=== PATIENT | male | born 1970 | race Caucasian/White ===

== ENCOUNTER 2017-04-26 18:33 | Inpatient (IN) | payer MEDICARE, MEDICAID ==
[~2017-04-26] VITALS: Ht 182.9 cm; Wt 81.2 kg
[~2017-04-26 18:33] MED LIST: ARIP5SOL2 PO; LISI10TA7 PO; LORA-192 PO; METO-325 PO; MULT-1203 PO; RISP3 PO; TRAZ-144 PO; TRIH2TAB3 PO
[2017-04-26 20:26] VITALS: BP 103/66
[2017-04-26 21:28] VITALS: BP 109/67
[2017-04-26] MEDS: ZOLPIDEM TARTRATE 10 MG TABLET PO PRN (21:35)
[2017-04-26] MEDS ORDERED: PNEUMOCOCCAL VACCINE POLYVALENT 0.5 ML VIAL [PPSV23] IM ONE (22:30)
[2017-04-27 06:27] VITALS: BP 102/60
[2017-04-27 08:16] VITALS: BP 104/66
[2017-04-27] MEDS ORDERED: CloNIDine HCL 0.1 MG TABLET PO PRN (08:30)
[2017-04-27] MEDS ORDERED: PETROLATUM,WHITE 71 GM JELLY TP PRN (08:30)
[2017-04-27] MEDS ORDERED: BENZOCAINE/MENTHOL LOZENGE MM PRN (08:30)
[2017-04-27] MEDS ORDERED: IBUPROFEN 600 MG TABLET PO PRN (08:30)
[2017-04-27] MEDS ORDERED: MAGNESIUM HYDROXIDE SUSPENSION 30 ML UDCUP PO PRN (08:30)
[2017-04-27] MEDS ORDERED: LOPERAMIDE HCL 2 MG CAPSULE PO PRN (08:30)
[2017-04-27] MEDS ORDERED: ACETAMINOPHEN 325 MG TABLET PO PRN (08:30)
[2017-04-27] MEDS ORDERED: MAG HYDROX/AL HYDROX/SIMETH ES 30 ML SUSPENSION UDCUP PO PRN (08:30)
[2017-04-27] MEDS ORDERED: BACITRACIN 28.4 GM OINTMENT TP PRN (08:30)
[2017-04-27] MEDS ORDERED: ALBUTEROL SULFATE HFA 90 MCG/PUFF 8 GM INHALER IH PRN (08:30)
[2017-04-27] MEDS ORDERED: ONDANSETRON HCL 4 MG TABLET PO PRN (08:30)
[2017-04-27 08:34] LABS: BASOPHILS % (AUTO) 0.7 % (0.0-2.0); EOSINOPHILS % (AUTO) 2.1 % (1.0-6.0); HEMATOCRIT 40.5 % (41-53); HEMOGLOBIN 13.7 g/dL (13.5-17.5); LYMPHOCYTES # (AUTO) 2.4 K/uL (1.0-4.8); LYMPHOCYTES % (AUTO) 40.1 % (22.0-44.0); MEAN CORPUSCULAR HEMOGLOBIN 31.3 pg (26.0-34.0); MEAN CORPUSCULAR HGB CONC 33.9 G/dL (31.0-37.0); MEAN CORPUSCULAR VOLUME 92 fL (80-100); MONOCYTES # (AUTO) 0.7 K/uL (0.1-1.0); MONOCYTES % (AUTO) 12.3 % (2.0-9.0); NEUTROPHILS # (AUTO) 2.7 K/uL (1.8-7.7); NEUTROPHILS % (AUTO) 44.8 % (40.0-70.0); PLATELET COUNT (AUTO) 229 K/uL (150-450); RED BLOOD CELL COUNT(AUTO) 4.39 MIL/uL (4.50-5.90); RED CELL DISTRIBUTION WIDTH 14.2 % (11.5-14.5)
[2017-04-27] MEDS: MULTIVITAMINS WITH MINERALS, THERAPEUTIC TABLET PO SCH (08:52)
[2017-04-27] MEDS ORDERED: METOPROLOL SUCCINATE 50 MG ER TABLET PO SCH (09:00)
[2017-04-27] MEDS ORDERED: LISINOPRIL 20 MG TABLET PO SCH (09:00)
[2017-04-27] MEDS: LISINOPRIL 5 MG TABLET PO SCH (09:00)
[2017-04-27 09:40] LABS: ALANINE AMINOTRANSFERASE 28 U/L (12-78); ALBUMIN 3.4 g/dL (3.4-5.0); ANION GAP 8 mmol/L (8-16); ASPARTATE AMINOTRANSFERASE 14 U/L (15-37); BILIRUBIN,TOTAL 0.4 mg/dL (0.1-1.0); CALCIUM, TOTAL 8.5 mg/dL (8.8-10.5); CARBON DIOXIDE 28 mmol/L (22-29); CHLORIDE 105 mmol/L (98-107); CREATININE 0.86 mg/dL (0.60-1.30); GLOMERULAR FILTR. RATE CALC > 60 mL/min (>60); POTASSIUM 3.9 mmol/L (3.5-5.1); SODIUM SERUM 141 mmol/L (136-145); THYROID STIMULATING HORMONE 2.28 uIU/mL (0.36-3.74); TOTAL PROTEIN, SERUM 6.5 g/dL (6.4-8.2); UREA NITROGEN, BLOOD 22 mg/dL (7-18)
[2017-04-27] MEDS: LORazepam 2 MG TABLET PO PRN (12:52)
[2017-04-27 16:15] VITALS: BP 100/61
[2017-04-27] MEDS: RisperiDONE 2 MG TABLET PO SCH (20:23)
[2017-04-27] MEDS: ZOLPIDEM TARTRATE 10 MG TABLET PO PRN (21:30)
[2017-04-28 06:05] VITALS: BP 110/64
[2017-04-28] MEDS: LORazepam 2 MG TABLET PO PRN ×3 (06:10→16:21)
[2017-04-28 08:02] VITALS: BP 104/55
[2017-04-28] MEDS: LISINOPRIL 5 MG TABLET PO SCH (09:00)
[2017-04-28] MEDS: MULTIVITAMINS WITH MINERALS, THERAPEUTIC TABLET PO SCH (09:56)
[2017-04-28] MEDS: RisperiDONE 2 MG TABLET PO SCH ×2 (09:57→20:34)
[2017-04-28 16:02] VITALS: BP 107/61
[2017-04-28] MEDS: ZOLPIDEM TARTRATE 10 MG TABLET PO PRN (21:27)
[2017-04-29 08:01] VITALS: BP 104/62
[2017-04-29] MEDS ORDERED: PALIPERIDONE PALMITATE 234 MG/1.5 ML SYRINGE IM ONE (09:00)
[2017-04-29] MEDS: LORazepam 2 MG TABLET PO PRN ×2 (09:26→14:47)
[2017-04-29] MEDS: MULTIVITAMINS WITH MINERALS, THERAPEUTIC TABLET PO SCH (09:26)
[2017-04-29] MEDS: RisperiDONE 2 MG TABLET PO SCH ×2 (09:26→20:33)
[2017-04-29] MEDS: LISINOPRIL 5 MG TABLET PO SCH (09:26)
[2017-04-29 18:00] VITALS: BP 107/63
[2017-04-29] MEDS: ZOLPIDEM TARTRATE 10 MG TABLET PO PRN (20:56)
[2017-04-30 00:02] VITALS: BP 110/62
[2017-04-30 08:04] LABS: BASOPHILS # (AUTO) 0.04 K/uL (0.00-0.20); BASOPHILS % (AUTO) 0.7 % (0.0-2.0); EOSINOPHILS # (AUTO) 0.15 K/uL (0.00-0.70); EOSINOPHILS % (AUTO) 2.58 % (1.0-6.0); HEMATOCRIT 40.8 % (41-53); HEMOGLOBIN 13.6 g/dL (13.5-17.5); LYMPHOCYTES # (AUTO) 2.3 K/uL (1.0-4.8); LYMPHOCYTES % (AUTO) 39.9 % (22.0-44.0); MEAN CORPUSCULAR HEMOGLOBIN 31.2 pg (26.0-34.0); MEAN CORPUSCULAR HGB CONC 33.4 G/dL (31.0-37.0); MEAN CORPUSCULAR VOLUME 93 fL (80-100); MONOCYTES # (AUTO) 0.8 K/uL (0.1-1.0); MONOCYTES % (AUTO) 13.4 % (2.0-9.0); NEUTROPHILS # (AUTO) 2.5 K/uL (1.8-7.7); NEUTROPHILS % (AUTO) 43.4 % (40.0-70.0); PLATELET COUNT (AUTO) 210 K/uL (150-450); RED BLOOD CELL COUNT(AUTO) 4.37 MIL/uL (4.50-5.90); RED CELL DISTRIBUTION WIDTH 13.8 % (11.5-14.5); WHITE BLOOD COUNT (AUTO) 5.8 K/uL (4.5-11.0)
[2017-04-30 08:10] VITALS: BP 100/58
[2017-04-30 08:15] LABS: ALANINE AMINOTRANSFERASE 24 U/L (12-78); ALBUMIN 3.4 g/dL (3.4-5.0); ANION GAP 7 mmol/L (8-16); ASPARTATE AMINOTRANSFERASE 11 U/L (15-37); BILIRUBIN,TOTAL 0.4 mg/dL (0.1-1.0); CALCIUM, TOTAL 8.4 mg/dL (8.8-10.5); CARBON DIOXIDE 27 mmol/L (22-29); CHLORIDE 106 mmol/L (98-107); CREATININE 0.84 mg/dL (0.60-1.30); GLOMERULAR FILTR. RATE CALC > 60 mL/min (>60); SODIUM SERUM 140 mmol/L (136-145); TOTAL PROTEIN, SERUM 6.4 g/dL (6.4-8.2); UREA NITROGEN, BLOOD 28 mg/dL (7-18)
[2017-04-30] MEDS: RisperiDONE 2 MG TABLET PO SCH ×2 (08:46→20:32)
[2017-04-30] MEDS: MULTIVITAMINS WITH MINERALS, THERAPEUTIC TABLET PO SCH (08:46)
[2017-04-30] MEDS: LISINOPRIL 5 MG TABLET PO SCH (08:47)
[2017-04-30] MEDS: HALOPERIDOL 5 MG TABLET PO PRN (10:22)
[2017-04-30] MEDS: LORazepam 2 MG TABLET PO PRN (11:16)
[2017-04-30 18:14] VITALS: BP 105/63
[2017-04-30] MEDS: ZOLPIDEM TARTRATE 10 MG TABLET PO PRN (20:57)
[2017-05-01 03:28] VITALS: BP 105/60
[2017-05-01 08:25] VITALS: BP 102/57
[2017-05-01] MEDS: RisperiDONE 2 MG TABLET PO SCH ×2 (08:48→20:40)
[2017-05-01] MEDS: MULTIVITAMINS WITH MINERALS, THERAPEUTIC TABLET PO SCH (08:48)
[2017-05-01] MEDS: LISINOPRIL 5 MG TABLET PO SCH (08:54)
[2017-05-01 16:02] VITALS: BP 107/64
[2017-05-01] MEDS: LORazepam 2 MG TABLET PO PRN (20:57)
[2017-05-02 04:17] VITALS: BP_SYST 100; BP_SYST 99; BP_DIAS 59
[2017-05-02] MEDS: MULTIVITAMINS WITH MINERALS, THERAPEUTIC TABLET PO SCH (08:37)
[2017-05-02] MEDS: LISINOPRIL 5 MG TABLET PO SCH (08:37)
[2017-05-02] MEDS: RisperiDONE 2 MG TABLET PO SCH ×2 (08:37→20:42)
[2017-05-02 08:45] VITALS: BP 102/65
[2017-05-02] MEDS: HALOPERIDOL 5 MG TABLET PO PRN (09:04)
[2017-05-02 20:02] VITALS: BP 113/68
[2017-05-02] MEDS: ZOLPIDEM TARTRATE 10 MG TABLET PO PRN (20:54)
[2017-05-03 00:02] VITALS: BP 105/61
[2017-05-03 08:12] VITALS: BP 98/60
[2017-05-03] MEDS: MULTIVITAMINS WITH MINERALS, THERAPEUTIC TABLET PO SCH (08:58)
[2017-05-03] MEDS: RisperiDONE 2 MG TABLET PO SCH ×2 (08:58→20:01)
[2017-05-03] MEDS: LISINOPRIL 5 MG TABLET PO SCH (08:59)
[2017-05-03] MEDS ORDERED: PALIPERIDONE PALMITATE 156 MG/ML SYRINGE IM ONE (09:00)
[2017-05-03 16:08] VITALS: BP 107/73
[2017-05-04 00:02] VITALS: BP 104/64
[2017-05-04] MEDS: RisperiDONE 2 MG TABLET PO SCH ×2 (08:13→20:26)
[2017-05-04] MEDS: HALOPERIDOL 5 MG TABLET PO PRN (08:13)
[2017-05-04] MEDS: MULTIVITAMINS WITH MINERALS, THERAPEUTIC TABLET PO SCH (08:13)
[2017-05-04] MEDS: LISINOPRIL 5 MG TABLET PO SCH (08:14)
[2017-05-04 08:28] VITALS: BP 107/61
[2017-05-04] MEDS: LORazepam 2 MG TABLET PO PRN ×2 (12:13→17:36)
[2017-05-04 16:07] VITALS: BP 114/73
[2017-05-04] MEDS: ZOLPIDEM TARTRATE 10 MG TABLET PO PRN (21:52)
[2017-05-05 00:51] VITALS: BP 100/60
[2017-05-05 09:00] VITALS: BP 107/63
[2017-05-05] MEDS: MULTIVITAMINS WITH MINERALS, THERAPEUTIC TABLET PO SCH (09:16)
[2017-05-05] MEDS: LORazepam 2 MG TABLET PO PRN (09:16)
[2017-05-05] MEDS: RisperiDONE 2 MG TABLET PO SCH ×2 (09:16→20:05)
[2017-05-05] MEDS: NICOTINE 21 MG/24 HOUR PATCH TD SCH (15:38)
[2017-05-05 16:50] VITALS: BP 99/65
[2017-05-05] MEDS: HALOPERIDOL 5 MG TABLET PO PRN (22:01)
[2017-05-06 00:02] VITALS: BP 109/66
[2017-05-06 08:44] VITALS: BP 87/50
[2017-05-06 09:10] VITALS: BP 97/67
[2017-05-06] MEDS: RisperiDONE 2 MG TABLET PO SCH ×2 (09:13→20:04)
[2017-05-06] MEDS: NICOTINE 21 MG/24 HOUR PATCH TD SCH (09:13)
[2017-05-06] MEDS: MULTIVITAMINS WITH MINERALS, THERAPEUTIC TABLET PO SCH (09:13)
[2017-05-06 10:21] VITALS: BP 97/67
[2017-05-06 11:58] VITALS: BP 111/65
[2017-05-06] MEDS: LORazepam 2 MG TABLET PO PRN (11:59)
[2017-05-06 16:00] VITALS: BP 104/62
[2017-05-06] MEDS: ZOLPIDEM TARTRATE 10 MG TABLET PO PRN (21:33)
[2017-05-07 06:12] VITALS: BP 107/67
[2017-05-07] MEDS ORDERED: RISP2TAB76 PO (07:54)
[2017-05-07] MEDS: LORazepam 2 MG TABLET PO PRN (07:59)
[2017-05-07] MEDS: MULTIVITAMINS WITH MINERALS, THERAPEUTIC TABLET PO SCH (08:09)
[2017-05-07] MEDS: NICOTINE 21 MG/24 HOUR PATCH TD SCH (08:09)
[2017-05-07] MEDS: RisperiDONE 2 MG TABLET PO SCH (08:09)
[2017-05-07 08:42] VITALS: BP 98/55
[2017-05-31] MEDS ORDERED: PALIPERIDONE PALMITATE 234 MG/1.5 ML SYRINGE IM SCH (09:00)
== END 2017-05-07 10:10 | disposition home or self-care (01) | DRG 885 ==
LOC: B2X 21:07 → EDSTATUS 21:10 → UNDOADMIN 21:15 → B2X 21:15
DX: F20.0 Paranoid schizophrenia (principal); E78.5 Hyperlipidemia, unspecified; I10 Essential (primary) hypertension; J44.9 Chronic obstructive pulmonary disease, unspecified; F17.200 Nicotine dependence, unspecified, uncomplicated; K59.00 Constipation, unspecified; K21.9 Gastro-esophageal reflux disease without esophagitis; E87.6 Hypokalemia; G47.00 Insomnia, unspecified; Z91.5 Personal history of self-harm; Z28.21 Immunization not carried out because of patient refusal; Z79.899 Other long term (current) drug therapy; E83.51 Hypocalcemia
CPT/HCPCS: 82306; 83735; 84100; 84436; 84439; 84443; 87081

== ENCOUNTER 2017-10-30 07:13 | Emergency (ER) | payer MEDICARE, OTHER ==
[~2017-10-30] VITALS: Ht 180.3 cm; Wt 80.0 kg
[~2017-10-30 07:13] MED LIST changes: -ARIP5SOL2 PO; -LISI10TA7 PO; -LORA-192 PO; -METO-325 PO; -MULT-1203 PO; +RISP2TAB76 PO; -RISP3 PO; -TRAZ-144 PO; -TRIH2TAB3 PO
[2017-10-30] MEDS ORDERED: GABA-533 PO (07:20)
[2017-10-30] MEDS ORDERED: PALI78DI IM (07:20)
[2017-10-30] MEDS ORDERED: CLON1 PO (07:20)
[2017-10-30] MEDS ORDERED: TRAM50TA4 PO (07:20)
[2017-10-30 07:40] VITALS: BP 138/90
== END 2017-10-30 07:52 | disposition home or self-care (01) ==
LOC: EMS 07:16
DX: G62.9 Polyneuropathy, unspecified (principal); F20.9 Schizophrenia, unspecified; I10 Essential (primary) hypertension; J44.9 Chronic obstructive pulmonary disease, unspecified; K21.9 Gastro-esophageal reflux disease without esophagitis; F17.210 Nicotine dependence, cigarettes, uncomplicated
CPT/HCPCS: 99283; 99406

== ENCOUNTER 2024-01-13 18:14 | Emergency (ER) | payer MEDICAID, MEDICARE, SELFPAY ==
[~2024-01-13] VITALS: Ht 180.3 cm; Wt 77.3 kg
[~2024-01-13 18:14] MED LIST changes: +CLON-595 PO; +GABA-1201 PO; +PALI78DI IM; -RISP2TAB76 PO; +TRAM-559 PO
[2024-01-13 19:06] VITALS: TEMP 98
[2024-01-13 20:38] LABS: BASOPHILS % (AUTO) 0.6 % (0.0-2.0); EOSINOPHILS % (AUTO) 3.6 % (1.0-6.0); HEMOGLOBIN 12.1 g/dL (13.5-17.5); LYMPHOCYTES # (AUTO) 1.9 K/uL (1.0-4.8); LYMPHOCYTES % (AUTO) 33.5 % (22.0-44.0); MEAN CORPUSCULAR HEMOGLOBIN 29.5 pg (26.0-34.0); MEAN CORPUSCULAR HGB CONC 33.7 G/dL (31.0-37.0); MEAN CORPUSCULAR VOLUME 88 fL (80-100); MONOCYTES # (AUTO) 0.6 K/uL (0.1-1.0); MONOCYTES % (AUTO) 11.2 % (2.0-9.0); NEUTROPHILS # (AUTO) 2.8 K/uL (1.8-7.7); NEUTROPHILS % (AUTO) 51.1 % (40.0-70.0); PLATELET COUNT (AUTO) 231 K/uL (150-450); RED BLOOD CELL COUNT(AUTO) 4.11 MIL/uL (4.50-5.90); RED CELL DISTRIBUTION WIDTH 13.5 % (11.5-14.5); WHITE BLOOD COUNT (AUTO) 5.6 K/uL (4.5-11.0)
[2024-01-13 20:51] LABS: ANION GAP 8 mmol/L (8-16); CALCIUM, TOTAL 8.7 mg/dL (8.8-10.5); CARBON DIOXIDE 26 mmol/L (22-29); CHLORIDE 103 mmol/L (98-107); CREATININE 0.98 mg/dL (0.60-1.30); GLOMERULAR FILTR. RATE CALC > 60 mL/min (>60); GLUCOSE,RANDOM 116 mg/dL (70-110); POTASSIUM 3.6 mmol/L (3.5-5.1); SODIUM SERUM 137 mmol/L (136-145); UREA NITROGEN, BLOOD 17 mg/dL (7-18)
[2024-01-13 20:55] LABS: ALANINE AMINOTRANSFERASE 20 U/L (12-78); ALBUMIN 2.9 g/dL (3.4-5.0); ALKALINE PHOSPHATASE 77 U/L (46-116); ASPARTATE AMINOTRANSFERASE 22 U/L (15-37); BILIRUBIN,TOTAL 0.3 mg/dL (0.1-1.0); TOTAL PROTEIN, SERUM 6.5 g/dL (6.4-8.2)
[2024-01-13 20:57] LABS: TROPONIN I-HIGH SENSITIVITY 9 ng/L (<76)
[2024-01-14] MEDS: ACETAMINOPHEN 500 MG TABLET PO ONE (00:57)
[2024-01-14 01:04] VITALS: BP 131/62; PULSE 82; RESP 18
== END 2024-01-14 01:13 | disposition home or self-care (01) ==
LOC: EMS 18:52
DX: R07.89 Other chest pain (principal); Z91.148 Patient's other noncompliance with medication regimen for other reason; Z59.00 Homelessness unspecified
CPT/HCPCS: 71045; 80053; 84484; 85025; 93005; 99285; 36415-L1; 36415-TC

== ENCOUNTER 2025-09-26 23:03 | Emergency (ER) | payer MEDICARE, OTHER ==
[~2025-09-26] VITALS: Ht 180.3 cm; Wt 72.7 kg
[~2025-09-26 23:03] MED LIST changes: -TRAM-559 PO; +TRAM50TA5 PO
[2025-09-26 23:18] VITALS: TEMP 98.6
[2025-09-26 23:23] VITALS: BP 81/57; PULSE 91; RESP 14; O2SAT 98
[2025-09-27] MEDS: HYDROCODONE/ACETAMINOPHEN 5-325 MG TABLET PO ONE (01:00)
== END 2025-09-27 02:17 | disposition home or self-care (01) ==
LOC: EMS 23:03
DX: S02.2XXA Fracture of nasal bones, initial encounter for closed fracture (principal); S01.81XA Laceration without foreign body of other part of head, initial encounter; F20.9 Schizophrenia, unspecified; F17.210 Nicotine dependence, cigarettes, uncomplicated; Z79.899 Other long term (current) drug therapy; Y04.0XXA Assault by unarmed brawl or fight, initial encounter; Y93.89 Activity, other specified; Y92.89 Other specified places as the place of occurrence of the external cause; Y99.8 Other external cause status
CPT/HCPCS: 12011; 70450; 70486; 99284